=== PATIENT | male | born 1960 | race Caucasian/White ===

== ENCOUNTER 2020-01-18 10:54 | Inpatient (IN) ==
[2020-01-18] MEDS ORDERED: SODIUM CHLORIDE 0.9% 1,000 ML IV STA (11:30)
[2020-01-18 11:48] LABS: Basophils % 0.1 % (0.0-0.8); Hematocrit 51.4 VOL% (42.0-52.0); Hemoglobin 17.8 GM/DL (14.0-18.0); Immature Granulocytes % 0.9 %; Lymphocytes # 0.4 10*3/uL (1.4-4.0); Lymphocytes % 1.8 % (21.2-54.2); Mean Corpuscular HGB Conc 34.6 GM/DL (32-36); Mean Corpuscular Volume 87.1 FL (87-102); Mean Platelet Volume 11.3 FL (9.6-12.0); Monocytes % 5.1 % (1.7-12.7); Neutrophils % 92.1 % (38.7-73.9); Platelet Count 243 T/CUMM (130-400); Red Cell Distribution Width 12.5 % (9.3-17.3); White Blood Count 23.3 T/CUMM (4-12)
[2020-01-18] MEDS ORDERED: PIPERACILLIN/TAZOBACTAM 3,375 MG in SODIUM CHLORIDE 0.9% 100 ML IV STA (12:03)
[2020-01-18] MEDS ORDERED: ONDANSETRON 4 MG/2 ML VIAL IV STA (12:03)
[2020-01-18] MEDS ORDERED: HYDROmorphone 2 MG/1 ML VIAL IV STA (12:03)
[2020-01-18 12:04] LABS: Alanine Aminotransferase 37 U/L (16-61); Albumin 3.6 G/DL (3.4-5.0); Alkaline Phosphatase 147 U/L (45-117); Aspartate Amino Transferase 55 U/L (0-37); Blood Urea Nitrogen 16 MG/DL (7-18); Calcium 9.6 MG/DL (8.5-10.1); Carbon Dioxide 25 MMOL/L (21-32); Estimated Glom Filtration Rate 90 ML/MIN; Glucose 170 MG/DL (74-106); Osmolality,Calculated 277.8 MOS/KG (273-304); Potassium 3.8 MMOL/L (3.5-5.1); Sodium 137 MMOL/L (136-145); Total Protein 7.9 G/DL (6.4-8.3)
[2020-01-18] MEDS ORDERED: HYDROmorphone 2 MG/1 ML VIAL ONE (12:16)
[2020-01-18] MEDS ORDERED: PIPERACILLIN/TAZOBACTAM 3,375 MG VIAL IV ONE (12:17)
[2020-01-18] MEDS ORDERED: ONDANSETRON 4 MG/2 ML VIAL ONE (12:17)
[2020-01-18 13:10] LABS: Platelet Estimate Normal; Polychromasia Slight; Segmented Neutrophils 89 % (50-85); Total Cells Counted 100
[2020-01-18] MEDS ORDERED: PROMETHAZINE 25 MG/1 ML VIAL IM PRN (13:58)
[2020-01-18] MEDS: LACTATED RINGERS 1,000 ML IV SCH ×2 (14:09→22:09)
[2020-01-18] MEDS: HYDROmorphone 2 MG/1 ML VIAL IV PRN ×3 (14:47→20:39)
[2020-01-18] MEDS: ACETAMINOPHEN 325 MG TABLET PO PRN (16:07)
[2020-01-18] MEDS: ONDANSETRON 4 MG/2 ML VIAL IV PRN ×2 (20:39→20:40)
[2020-01-18] MEDS: PIPERACILLIN/TAZOBACTAM 3,375 MG in SODIUM CHLORIDE 0.9% 100 ML IV SCH (22:08)
[2020-01-19] MEDS: ONDANSETRON 4 MG/2 ML VIAL IV PRN (02:23)
[2020-01-19] MEDS: HYDROmorphone 2 MG/1 ML VIAL IV PRN (02:25)
[2020-01-19] MEDS: PIPERACILLIN/TAZOBACTAM 3,375 MG in SODIUM CHLORIDE 0.9% 100 ML IV SCH ×3 (05:16→21:05)
[2020-01-19] MEDS ORDERED: ENOXAPARIN 40 MG/0.4 ML SYRINGE SUBCUT SCH (06:00)
[2020-01-19 06:01] LABS: Basophils # 0.1 10*3/uL (0.0-0.2); Basophils % 0.2 % (0.0-0.8); Hematocrit 49.4 VOL% (42.0-52.0); Hemoglobin 16.2 GM/DL (14.0-18.0); Immature Granulocytes % 1.3 %; Immature Granulocytes Absolute 0.38 #; Lymphocytes # 0.9 10*3/uL (1.4-4.0); Lymphocytes % 3.1 % (21.2-54.2); Mean Corpuscular HGB Conc 32.8 GM/DL (32-36); Mean Corpuscular Volume 90.5 FL (87-102); Mean Platelet Volume 12.8 FL (9.6-12.0); Monocytes % 7.7 % (1.7-12.7); Neutrophils % 87.7 % (38.7-73.9); Platelet Count 193 T/CUMM (130-400); Red Blood Count 5.46 MC/CUMM (3.8-5.5); Red Cell Distribution Width 13.2 % (9.3-17.3); White Blood Count 28.4 T/CUMM (4-12)
[2020-01-19 06:34] LABS: Band Neutrophils 1 % (0-10); Lymphocytes 5 % (20-55); Platelet Estimate Adequate; Segmented Neutrophils 85 % (50-85); Total Cells Counted 100
[2020-01-19 06:35] LABS: Albumin 2.8 G/DL (3.4-5.0); Bilirubin,Direct 0.68 MG/DL (0.0-0.20); Bilirubin,Indirect 2.9 MG/DL (0.0-1.0); Bilirubin,Total 3.6 MG/DL (0.2-1.0); Calcium 9.3 MG/DL (8.5-10.1); Potassium 4.3 MMOL/L (3.5-5.1); Total Protein 6.7 G/DL (6.4-8.3)
[2020-01-19] MEDS ORDERED: INDOMETHACIN SUPP 50 MG SUPP RECTAL ONE (09:09)
[2020-01-19 10:08] LABS: INR 1.7; PT Patient Result 17.3 SECS (9.8-11.9)
[2020-01-19] MEDS: LACTATED RINGERS 1,000 ML IV SCH ×2 (11:17→14:10)
[2020-01-19] MEDS ORDERED: MIDAZOLAM 2 MG/2 ML VIAL ONE (12:02)
[2020-01-19] MEDS ORDERED: fentaNYL 100 MCG/2 ML VIAL ONE (12:03)
[2020-01-19] MEDS ORDERED: PHENYLEPHRINE 1 MG/10 ML SYRINGE IV ONE ×2 (12:27→12:47)
[2020-01-19] MEDS ORDERED: DEXAMETHASONE 4 MG/1 ML VIAL ONE (12:32)
[2020-01-19] MEDS ORDERED: ONDANSETRON 4 MG/2 ML VIAL ONE (12:32)
[2020-01-19] MEDS ORDERED: LACTATED RINGERS 1,000 ML IV ONE (14:06)
[2020-01-19 14:20] LABS: Troponin I 0.069 NG/ML (0.00-0.045)
[2020-01-19] MEDS: PANTOPRAZOLE 40 MG TABLET PO SCH (15:32)
[2020-01-19] MEDS: clonazePAM 0.5 MG TABLET PO SCH (21:04)
[2020-01-20] MEDS: PIPERACILLIN/TAZOBACTAM 3,375 MG in SODIUM CHLORIDE 0.9% 100 ML IV SCH ×3 (04:16→20:10)
[2020-01-20] MEDS ORDERED: GABAPENTIN 400 MG CAPSULE PO ONE (08:00)
[2020-01-20 08:44] LABS: Basophils % 0.1 % (0.0-0.8); Hematocrit 44.2 VOL% (42.0-52.0); Hemoglobin 14.8 GM/DL (14.0-18.0); Immature Granulocytes % 1.2 %; Immature Granulocytes Absolute 0.27 #; Lymphocytes # 0.6 10*3/uL (1.4-4.0); Lymphocytes % 2.9 % (21.2-54.2); Mean Corpuscular HGB Conc 33.5 GM/DL (32-36); Mean Corpuscular Volume 88.2 FL (87-102); Monocytes % 7.5 % (1.7-12.7); Neutrophils % 88.3 % (38.7-73.9); Platelet Count 182 T/CUMM (130-400); Red Blood Count 5.01 MC/CUMM (3.8-5.5); Red Cell Distribution Width 12.8 % (9.3-17.3); White Blood Count 22.1 T/CUMM (4-12)
[2020-01-20] MEDS ORDERED: lisinopriL 10 MG TABLET PO SCH (09:00)
[2020-01-20 09:02] LABS: Lymphocytes 5 % (20-55); Platelet Estimate Adequate; Segmented Neutrophils 91 % (50-85); Total Cells Counted 100
[2020-01-20 09:03] LABS: Hypochromasia 1+; Microcytosis 1+
[2020-01-20 09:14] LABS: Albumin 2.5 G/DL (3.4-5.0); Bilirubin,Total 2.6 MG/DL (0.2-1.0); Calcium 9.2 MG/DL (8.5-10.1); Osmolality,Calculated 280.7 MOS/KG (273-304); Potassium 3.9 MMOL/L (3.5-5.1); Total Protein 6.7 G/DL (6.4-8.3)
[2020-01-20] MEDS: LACTATED RINGERS 1,000 ML IV SCH ×3 (09:30→20:14)
[2020-01-20 09:33] LABS: Albumin 2.7 G/DL (3.4-5.0); Bilirubin,Direct 0.35 MG/DL (0.0-0.20); Bilirubin,Indirect 1.9 MG/DL (0.0-1.0); Bilirubin,Total 2.2 MG/DL (0.2-1.0); Total Protein 5.8 G/DL (6.4-8.3)
[2020-01-20] MEDS ORDERED: LIDOCAINE 1%/EPI INJ 20 ML VIAL ONE (10:30)
[2020-01-20] MEDS ORDERED: BUPIVACAINE MPF 0.25% 30 ML VIAL ONE (10:30)
[2020-01-20] MEDS ORDERED: TISSUE ADHESIVE 1 EACH APPLICATOR TOP ONE (10:30)
[2020-01-20] MEDS ORDERED: LIDOCAINE 2% 5 ML VIAL ONE (12:31)
[2020-01-20] MEDS ORDERED: propofoL 200 MG/20 ML VIAL IV ONE (12:31)
[2020-01-20] MEDS ORDERED: ROCURONIUM 50 MG/5 ML VIAL IV ONE (12:31)
[2020-01-20] MEDS ORDERED: MIDAZOLAM 2 MG/2 ML VIAL ONE (12:31)
[2020-01-20] MEDS ORDERED: SUCCINYLCHOLINE 200 MG/10 ML VIAL ONE (12:31)
[2020-01-20] MEDS ORDERED: fentaNYL 100 MCG/2 ML VIAL ONE (12:32)
[2020-01-20] MEDS ORDERED: FAMOTIDINE 20 MG/2 ML VIAL IV ONE (13:35)
[2020-01-20] MEDS: ACETAMINOPHEN 325 MG TABLET PO PRN (14:35)
[2020-01-20] MEDS: PANTOPRAZOLE 40 MG TABLET PO SCH (14:41)
[2020-01-20] MEDS: CITALOPRAM 20 MG TABLET PO SCH (14:41)
[2020-01-20] MEDS: ASPIRIN EC 81 MG TABLET PO SCH (15:31)
[2020-01-20] MEDS: METOPROLOL TARTRATE 25 MG TABLET PO SCH ×2 (15:31→20:11)
[2020-01-20 15:46] LABS: Troponin I 0.235 NG/ML (0.00-0.045)
[2020-01-20 18:45] LABS: Troponin I 0.244 NG/ML (0.00-0.045)
[2020-01-20] MEDS: clonazePAM 0.5 MG TABLET PO SCH (20:11)
[2020-01-21] MEDS: ACETAMINOPHEN 325 MG TABLET PO PRN (01:53)
[2020-01-21 05:53] LABS: Basophils % 0.1 % (0.0-0.8); Eosinophils % 0.1 % (0.00-10.9); Immature Granulocytes % 0.9 %; Immature Granulocytes Absolute 0.15 #; Lymphocytes # 0.8 10*3/uL (1.4-4.0); Lymphocytes % 4.7 % (21.2-54.2); Mean Corpuscular HGB Conc 34.1 GM/DL (32-36); Mean Corpuscular Volume 86.5 FL (87-102); Mean Platelet Volume 12.2 FL (9.6-12.0); Monocytes % 7.7 % (1.7-12.7); Neutrophils % 86.5 % (38.7-73.9); Platelet Count 202 T/CUMM (130-400); Red Blood Count 4.74 MC/CUMM (3.8-5.5); Red Cell Distribution Width 12.8 % (9.3-17.3); White Blood Count 17.1 T/CUMM (4-12)
[2020-01-21] MEDS: PIPERACILLIN/TAZOBACTAM 3,375 MG in SODIUM CHLORIDE 0.9% 100 ML IV SCH ×3 (06:20→22:23)
[2020-01-21 06:22] LABS: Lymphocytes 8 % (20-55); Microcytosis 1+; Platelet Estimate Adequate; Segmented Neutrophils 84 % (50-85); Total Cells Counted 100
[2020-01-21 06:23] LABS: Albumin 2.2 G/DL (3.4-5.0); Bilirubin,Total 2.4 MG/DL (0.2-1.0); Calcium 8.6 MG/DL (8.5-10.1); Osmolality,Calculated 274.8 MOS/KG (273-304); Potassium 3.4 MMOL/L (3.5-5.1); Total Protein 6.3 G/DL (6.4-8.3)
[2020-01-21 06:24] LABS: Risk Ratio 4.23; VLDL CHOLESTEROL 17.4 MG/DL
[2020-01-21] MEDS: ASPIRIN EC 81 MG TABLET PO SCH (09:59)
[2020-01-21] MEDS: CITALOPRAM 20 MG TABLET PO SCH (09:59)
[2020-01-21] MEDS: PANTOPRAZOLE 40 MG TABLET PO SCH (10:02)
[2020-01-21] MEDS: METOPROLOL TARTRATE 25 MG TABLET PO SCH ×2 (10:02→21:10)
[2020-01-21] MEDS: LACTATED RINGERS 1,000 ML IV SCH ×2 (12:05→17:25)
[2020-01-21] MEDS ORDERED: BUPIVACAINE MPF 0.25% 30 ML VIAL ONE ×2 (12:12→14:54)
[2020-01-21] MEDS ORDERED: LIDOCAINE 1%/EPI INJ 20 ML VIAL ONE (12:12)
[2020-01-21] MEDS ORDERED: fentaNYL 100 MCG/2 ML VIAL ONE ×2 (12:36→13:18)
[2020-01-21] MEDS ORDERED: MIDAZOLAM 2 MG/2 ML VIAL ONE (12:36)
[2020-01-21] MEDS ORDERED: SUCCINYLCHOLINE 200 MG/10 ML VIAL ONE (12:37)
[2020-01-21] MEDS ORDERED: LIDOCAINE 2% 5 ML VIAL ONE (12:37)
[2020-01-21] MEDS ORDERED: ROCURONIUM 50 MG/5 ML VIAL IV ONE ×2 (12:37→13:38)
[2020-01-21] MEDS ORDERED: propofoL 200 MG/20 ML VIAL IV ONE (12:37)
[2020-01-21] MEDS ORDERED: ONDANSETRON 4 MG/2 ML VIAL ONE (13:23)
[2020-01-21] MEDS ORDERED: PHENYLEPHRINE 1 MG/10 ML SYRINGE IV ONE (13:30)
[2020-01-21] MEDS ORDERED: LACTATED RINGERS 1,000 ML IV ONE (13:32)
[2020-01-21] MEDS ORDERED: METOPROLOL TARTRATE 5 MG/5 ML VIAL IV ONE (13:55)
[2020-01-21] MEDS ORDERED: NEOSTIGMINE 10 MG/10 ML VIAL ONE (14:21)
[2020-01-21] MEDS ORDERED: GLYCOPYRROLATE 0.4 MG/2 ML VIAL ONE (14:21)
[2020-01-21] MEDS ORDERED: SEVOFLURANE 1 UNIT/15 MINUTE INH ONE (14:36)
[2020-01-21] MEDS ORDERED: ONDANSETRON 4 MG/2 ML VIAL IV PRN (15:00)
[2020-01-21] MEDS: HYDROmorphone 2 MG/1 ML VIAL IV PRN ×4 (15:00→15:30)
[2020-01-21 16:58] LABS: Hematocrit 39.8 VOL% (42.0-52.0); Hemoglobin 13.2 GM/DL (14.0-18.0)
[2020-01-21] MEDS: clonazePAM 0.5 MG TABLET PO SCH (21:11)
[2020-01-21 23:19] LABS: Hematocrit 41.8 VOL% (42.0-52.0); Hemoglobin 13.7 GM/DL (14.0-18.0)
[2020-01-22] MEDS: ACETAMINOPHEN 325 MG TABLET PO PRN ×2 (00:19→19:02)
[2020-01-22 06:18] LABS: Basophils % 0.1 % (0.0-0.8); Eosinophils # 0.1 10*3/uL (0.0-0.87); Eosinophils % 0.7 % (0.00-10.9); Hematocrit 42.1 VOL% (42.0-52.0); Hemoglobin 13.9 GM/DL (14.0-18.0); Immature Granulocytes % 1.1 %; Immature Granulocytes Absolute 0.14 #; Lymphocytes # 1.1 10*3/uL (1.4-4.0); Lymphocytes % 8.8 % (21.2-54.2); Mean Corpuscular Volume 89.8 FL (87-102); Mean Platelet Volume 11.9 FL (9.6-12.0); Neutrophils % 76.3 % (38.7-73.9); Platelet Count 197 T/CUMM (130-400); Red Blood Count 4.69 MC/CUMM (3.8-5.5); White Blood Count 12.7 T/CUMM (4-12)
[2020-01-22 06:48] LABS: Bilirubin,Total 0.9 MG/DL (0.2-1.0); Calcium 8.2 MG/DL (8.5-10.1); Osmolality,Calculated 275.7 MOS/KG (273-304); Potassium 3.5 MMOL/L (3.5-5.1)
[2020-01-22] MEDS: PIPERACILLIN/TAZOBACTAM 3,375 MG in SODIUM CHLORIDE 0.9% 100 ML IV SCH ×3 (07:10→20:42)
[2020-01-22] MEDS: METOPROLOL TARTRATE 25 MG TABLET PO SCH ×2 (08:25→20:42)
[2020-01-22] MEDS: ASPIRIN EC 81 MG TABLET PO SCH (08:25)
[2020-01-22] MEDS: PANTOPRAZOLE 40 MG TABLET PO SCH (08:26)
[2020-01-22] MEDS: LACTATED RINGERS 1,000 ML IV SCH (08:54)
[2020-01-22] MEDS: HYDROmorphone 2 MG/1 ML VIAL IV PRN ×4 (09:57→23:33)
[2020-01-22] MEDS: clonazePAM 0.5 MG TABLET PO SCH (20:42)
[2020-01-22] MEDS ORDERED: CITALOPRAM 20 MG TABLET PO SCH (21:00)
[2020-01-23] MEDS: PIPERACILLIN/TAZOBACTAM 3,375 MG in SODIUM CHLORIDE 0.9% 100 ML IV SCH (05:19)
[2020-01-23] MEDS: METOPROLOL TARTRATE 25 MG TABLET PO SCH (09:56)
[2020-01-23] MEDS: PANTOPRAZOLE 40 MG TABLET PO SCH (09:56)
[2020-01-23] MEDS: ASPIRIN EC 81 MG TABLET PO SCH (09:56)
[2020-01-23 11:35] VITALS: BP 170/99
[2020-01-23] MEDS: HYDROmorphone 2 MG/1 ML VIAL IV PRN (14:32)
== END 2020-01-23 15:40 | disposition home or self-care (01) | DRG 416 ==
LOC: N.ED 10:54 → N.EDINP 12:17 → N.3E 14:11
PROVIDERS: ADMIT Surgery; ATTEND Surgery
PROC: ERCPWSP (ICD-10-PCS; 2020-01-19 10:05)
PROC: LAPCHOL (2020-01-20 08:05)

== ENCOUNTER 2020-02-09 15:58 | Inpatient (IN) ==
[2020-02-09] MEDS ORDERED: MORPHINE 4 MG/1 ML VIAL IV PRN (18:08)
[2020-02-09] MEDS ORDERED: ONDANSETRON 4 MG/2 ML VIAL IV PRN (18:09)
[2020-02-09] MEDS: PIPERACILLIN/TAZOBACTAM 3,375 MG in SODIUM CHLORIDE 0.9% 100 ML IV SCH (19:11)
[2020-02-10] MEDS: PIPERACILLIN/TAZOBACTAM 3,375 MG in SODIUM CHLORIDE 0.9% 100 ML IV SCH ×3 (02:04→18:04)
[2020-02-10] MEDS ORDERED: ACETAMINOPHEN 650 MG SUPP RECTAL PRN (04:26)
[2020-02-10] MEDS: ACETAMINOPHEN 325 MG TABLET PO PRN ×2 (05:16→18:04)
[2020-02-10] MEDS ORDERED: ALBUTEROL/IPRATROPIUM 3 ML NEB RESP TX PRN (16:05)
[2020-02-10] MEDS ORDERED: KETOROLAC 15 MG/1 ML VIAL IV PRN (16:05)
[2020-02-10] MEDS ORDERED: HYDROmorphone 2 MG/1 ML VIAL IV PRN (16:05)
[2020-02-10] MEDS ORDERED: BISACODYL 5 MG TABLET PO PRN (16:05)
[2020-02-10 17:01] LABS: Basophils % 0.1 % (0.0-0.8); Eosinophils # 0.1 10*3/uL (0.0-0.87); Eosinophils % 0.6 % (0.00-10.9); Hematocrit 37.7 VOL% (42.0-52.0); Hemoglobin 12.5 GM/DL (14.0-18.0); Immature Granulocytes % 0.8 %; Immature Granulocytes Absolute 0.07 #; Lymphocytes # 0.7 10*3/uL (1.4-4.0); Lymphocytes % 8.1 % (21.2-54.2); Mean Corpuscular HGB Conc 33.2 GM/DL (32-36); Mean Corpuscular Volume 86.3 FL (87-102); Mean Platelet Volume 11.5 FL (9.6-12.0); Monocytes % 7.8 % (1.7-12.7); Neutrophils % 82.6 % (38.7-73.9); Platelet Count 186 T/CUMM (130-400); Red Blood Count 4.37 MC/CUMM (3.8-5.5); Red Cell Distribution Width 12.7 % (9.3-17.3); White Blood Count 8.7 T/CUMM (4-12)
[2020-02-10 17:16] LABS: INR 1.1; PT Patient Result 12.2 SECS (9.8-11.9)
[2020-02-10] MEDS: LACTATED RINGERS 1,000 ML IV SCH (17:21)
[2020-02-10] MEDS: lisinopriL 10 MG TABLET PO SCH (20:53)
[2020-02-10] MEDS: CITALOPRAM 20 MG TABLET PO SCH (20:53)
[2020-02-10] MEDS: clonazePAM 0.5 MG TABLET PO SCH (20:53)
[2020-02-11] MEDS: PIPERACILLIN/TAZOBACTAM 3,375 MG in SODIUM CHLORIDE 0.9% 100 ML IV SCH ×3 (02:27→17:30)
[2020-02-11 06:30] LABS: Basophils % 0.1 % (0.0-0.8); Eosinophils # 0.1 10*3/uL (0.0-0.87); Eosinophils % 0.5 % (0.00-10.9); Hemoglobin 12.5 GM/DL (14.0-18.0); Immature Granulocytes % 0.8 %; Immature Granulocytes Absolute 0.07 #; Lymphocytes # 0.8 10*3/uL (1.4-4.0); Lymphocytes % 8.4 % (21.2-54.2); Mean Corpuscular HGB Conc 32.9 GM/DL (32-36); Mean Platelet Volume 12.8 FL (9.6-12.0); Monocytes % 11.1 % (1.7-12.7); Neutrophils % 79.1 % (38.7-73.9); Platelet Count 173 T/CUMM (130-400); Red Blood Count 4.37 MC/CUMM (3.8-5.5); Red Cell Distribution Width 12.7 % (9.3-17.3); White Blood Count 9.2 T/CUMM (4-12)
[2020-02-11 07:02] LABS: Albumin 2.5 G/DL (3.4-5.0); Bilirubin,Total 1.4 MG/DL (0.2-1.0); Calcium 8.8 MG/DL (8.5-10.1); Osmolality,Calculated 274.7 MOS/KG (273-304); Potassium 3.8 MMOL/L (3.5-5.1); Total Protein 6.9 G/DL (6.4-8.3)
[2020-02-11] MEDS ORDERED: DIAZEPAM 5 MG TABLET PO ONE (08:00)
[2020-02-11] MEDS: SODIUM CHLORIDE 0.45% 1,000 ML IV SCH (08:12)
[2020-02-11] MEDS: PANTOPRAZOLE 40 MG TABLET PO SCH (08:13)
[2020-02-11] MEDS: LACTATED RINGERS 1,000 ML IV SCH ×3 (08:14→16:34)
[2020-02-11] MEDS ORDERED: MIDAZOLAM 2 MG/2 ML VIAL IV ONE (08:30)
[2020-02-11] MEDS ORDERED: fentaNYL 100 MCG/2 ML VIAL IV ONE (08:30)
[2020-02-11] MEDS ORDERED: METOPROLOL TARTRATE 5 MG/5 ML VIAL IV ONE (10:39)
[2020-02-11] MEDS ORDERED: HYDROmorphone 2 MG/1 ML VIAL IV PRN ×2 (12:26)
[2020-02-11] MEDS: KETOROLAC 15 MG/1 ML VIAL IV SCH ×2 (13:08→17:29)
[2020-02-11] MEDS: clonazePAM 0.5 MG TABLET PO SCH (22:52)
[2020-02-11] MEDS: CITALOPRAM 20 MG TABLET PO SCH (22:52)
[2020-02-11] MEDS: lisinopriL 10 MG TABLET PO SCH (22:55)
[2020-02-12] MEDS: KETOROLAC 15 MG/1 ML VIAL IV SCH ×4 (00:47→18:04)
[2020-02-12] MEDS: PIPERACILLIN/TAZOBACTAM 3,375 MG in SODIUM CHLORIDE 0.9% 100 ML IV SCH ×3 (02:50→18:04)
[2020-02-12 05:19] LABS: Basophils % 0.1 % (0.0-0.8); Eosinophils # 0.1 10*3/uL (0.0-0.87); Eosinophils % 0.3 % (0.00-10.9); Hematocrit 36.5 VOL% (42.0-52.0); Immature Granulocytes % 0.9 %; Immature Granulocytes Absolute 0.14 #; Lymphocytes # 0.9 10*3/uL (1.4-4.0); Lymphocytes % 5.3 % (21.2-54.2); Mean Corpuscular HGB Conc 32.9 GM/DL (32-36); Mean Corpuscular Volume 87.3 FL (87-102); Mean Platelet Volume 12.1 FL (9.6-12.0); Monocytes % 8.9 % (1.7-12.7); Neutrophils % 84.5 % (38.7-73.9); Platelet Count 163 T/CUMM (130-400); Red Blood Count 4.18 MC/CUMM (3.8-5.5); Red Cell Distribution Width 13.1 % (9.3-17.3); White Blood Count 16.2 T/CUMM (4-12)
[2020-02-12 05:41] LABS: Albumin 2.3 G/DL (3.4-5.0); Bilirubin,Total 1.6 MG/DL (0.2-1.0); Calcium 8.8 MG/DL (8.5-10.1); Osmolality,Calculated 283.4 MOS/KG (273-304); Potassium 4.3 MMOL/L (3.5-5.1); Total Protein 6.4 G/DL (6.4-8.3)
[2020-02-12 05:47] LABS: Hypochromasia 1+; Microcytosis 1+; Platelet Estimate Adequate
[2020-02-12] MEDS: LACTATED RINGERS 1,000 ML IV SCH (10:09)
[2020-02-12] MEDS: PANTOPRAZOLE 40 MG TABLET PO SCH (10:09)
[2020-02-12] MEDS: clonazePAM 0.5 MG TABLET PO SCH (22:50)
[2020-02-12] MEDS: CITALOPRAM 20 MG TABLET PO SCH (22:50)
[2020-02-12] MEDS: lisinopriL 10 MG TABLET PO SCH (22:51)
[2020-02-13] MEDS: KETOROLAC 15 MG/1 ML VIAL IV SCH ×2 (00:33→05:57)
[2020-02-13] MEDS: PIPERACILLIN/TAZOBACTAM 3,375 MG in SODIUM CHLORIDE 0.9% 100 ML IV SCH (02:41)
[2020-02-13] MEDS ORDERED: VANCOMYCIN INJ 1,250 MG in SODIUM CHLORIDE 0.9% 250 ML IV ONE (08:35)
[2020-02-13 09:08] LABS: Basophils % 0.1 % (0.0-0.8); Eosinophils # 0.1 10*3/uL (0.0-0.87); Hematocrit 36.8 VOL% (42.0-52.0); Hemoglobin 11.9 GM/DL (14.0-18.0); Immature Granulocytes % 0.8 %; Immature Granulocytes Absolute 0.08 #; Lymphocytes # 0.7 10*3/uL (1.4-4.0); Lymphocytes % 7.3 % (21.2-54.2); Mean Corpuscular HGB Conc 32.3 GM/DL (32-36); Mean Corpuscular Volume 86.6 FL (87-102); Mean Platelet Volume 11.9 FL (9.6-12.0); Monocytes % 7.2 % (1.7-12.7); Neutrophils % 83.6 % (38.7-73.9); Platelet Count 176 T/CUMM (130-400); Red Blood Count 4.25 MC/CUMM (3.8-5.5)
[2020-02-13 09:29] LABS: Albumin 2.3 G/DL (3.4-5.0); Bilirubin,Total 0.8 MG/DL (0.2-1.0); Calcium 8.7 MG/DL (8.5-10.1); Osmolality,Calculated 281.4 MOS/KG (273-304); Potassium 3.7 MMOL/L (3.5-5.1); Total Protein 6.7 G/DL (6.4-8.3)
[2020-02-13] MEDS ORDERED: VANCOMYCIN INJ 1,500 MG in SODIUM CHLORIDE 0.9% 500 ML IV ONE (10:00)
[2020-02-13] MEDS: PANTOPRAZOLE 40 MG TABLET PO SCH (10:05)
[2020-02-13] MEDS: LACTATED RINGERS 1,000 ML IV SCH ×2 (10:09→10:10)
[2020-02-13] MEDS: SODIUM CHLORIDE 0.45% 1,000 ML IV SCH (10:10)
[2020-02-13 11:22] VITALS: BP 136/88
[2020-02-13] MEDS ORDERED: KETOROLAC 15 MG/1 ML VIAL IV PRN (11:24)
[2020-02-13] MEDS ORDERED: VANCOMYCIN INJ 1,500 MG in SODIUM CHLORIDE 0.9% 500 ML IV SCH (22:00)
== END 2020-02-13 15:00 | disposition home health service (06) | DRG 863 ==
LOC: N.5E 17:42
PROVIDERS: ADMIT Surgery; ATTEND Surgery